=== PATIENT | male | born 1975 | race Caucasian/White ===

== ENCOUNTER 2020-09-22 09:25 | Emergency (ER) | payer OTHER, SELFPAY ==
[2020-09-22 09:25] VITALS: BP 148/103; PULSE 102; RESP 18; TEMP 36.9; O2SAT 92; BMI 30.3
[2020-09-22 09:27] VITALS: BP 148/103; PULSE 102; RESP 18; TEMP 36.9; O2SAT 92
[2020-09-22] MEDS: 0.9% Normal Saline 1,000 ML 150 ML IV (10:08)
[2020-09-22] MEDS: Ondansetron 4 MG/2 ML Vial IV (10:09)
[2020-09-22] MEDS: morphine 8 MG/ML Syringe IV (10:09)
--- NOTE | 2020-09-22 10:20 | ED.DCSUM_ITS ---
History of Present Illness Chief Complaint: Other, Pain/Inj Informant: Patient Onset: Days Maximum Severity: Mild Narrative: The patient complains of left calf pain for 2 days he has history of factor V Leiden deficiency, history of DVT right leg over 5 years currently on Coumadin, he has history of PE related to this process. About 3 years ago. He basically indicates he has been doing fine he missed some Coumadin doses in the last few days noticed pain to the left calf directly over the most fleshy area of the calf no trauma no knee pain no distal tib-fib ankle or foot pain, no right leg pain, no chest pain or shortness of breath, about weeks ago tested positive for coronavirus he recovered he has no symptoms related to that. He has missed his Coumadin for the last few days. He has not had his INR checked in a long time he is followed by his [facility] physicians in the [place] he has not seen in some time. He denies any other past history Past Medical History - Allergies and Home Meds Allergies/Adverse Reactions: Allergies No Known Allergies Allergy (Verified 09/22/20 09:28) Primary Care Physician: Care Physician,No Primary [Primary Care Provider] - Past Medical History: - - 5 Leiden deficiency right lower extremity DVT history of PE Smoking Status: Never smoker Review of Systems General: Denies: Chills, Fever, Sweats Eyes: Denies: Visual changes - bilaterally, Diplopia ENT: Denies: Rhinorrhea, Sore throat Cardiovascular: Denies: Chest pain, Palpitations Respiratory: Denies: Dyspnea, Cough, Dyspnea on exertion Gastrointestinal: Denies: Abdominal pain, Nausea, Vomiting, Diarrhea, Melena, Hematochezia Genitourinary: Denies: Dysuria, Hematuria, Frequency Musculoskeletal: Reports: Extremity Pain, - - Points directly to the most fleshy part of his left calf as having area of pain in this area is unremarkable on exam he has no pain behind the knee no pain in the tib-fib no pain in the thigh foot or ankle. Denies: Back pain Skin: Denies: Rash, Wounds Neurological: Denies: Headache, Weakness, Numbness Physical Exam Vital Signs/Narrative: Vital Signs Temp Pulse Resp BP Pulse Ox 09/22/20 09:27 98.4 F 102 H 18 148/103 H 92 09/22/20 09:25 98.5 F 102 H 18 148/103 H 92 General: Well nourished, Well developed, No Acute Distress Head: Normocephalic, Atraumatic Eyes: Perrl, EOMI ENT: Moist mucous membranes, No rhinorrhea Neck: Supple, Nontender Cardiovascular: Regular rate, Regular rhythm, No murmurs Respiratory: No distress, CTA bilaterally, Chest nontender Abdomen: Soft, Nontender, Nondistended, Normal bowel sounds Back: Nontender, Normal Inspection Extremities: No edema, Calf Tenderness Skin: Normal color, No rash Neurological: Alert, Oriented x3, Cranial nerves II-XII grossly intact, Normal Strength, Normal Sensation Psychological: Normal affect, Normal Mood Diagnostic/Tx/Re-eval - Medical Decision Making He has very mild left calf tenderness, there is no pain in the thigh he has intact pulses his distal lower extremity exams are unremarkable no neurovascular abnormality, head neck chest abdomen remarkable no history or signs to suggest PE cardiovascular element, when he sitting in the bed he feels fine if he tries to move the extremity has pain in the calf. The differential is rather extensive given all of the above and his history obtain screening labs check his INR pain management The patient basically states he feels fine he wants to be discharged for outpatient management physicians he was brought to the hospital related to pain management he has his Coumadin at his home he knows the importance of taking it and he can see his outpatient providers Patient's ED screening evaluation and labs are unremarkable INR basically subtherapeutic he is not taken the warfarin for some time but he has it at home, we discussed the management we discussed the differential the complications including life-threatening complications limb threatening complications, we discussed inpatient versus outpatient management does not wish to be admitted, He will be given Lovenox subcu here he will start Coumadin therapy he will follow-up with his outpatient providers to have his INR and other conditions assessed and managed and return for change in symptoms he does clearly understand the complicated nature of his health condition and the need to stay on the Coumadin, Krebs for rescue pain management, crutches Home stable Impression final left calf pain history of DVT factor V Leiden deficiency ED Disposition - Plan for ED Patient: Disposition: Home or Assisted Living Diagnosis: Left calf pain DVT factor V Leiden defic Instructions: DVT/PE Discharge instruction sheet, Taking?Coumadin, Treating Deep Vein Thrombosis Prescriptions: Hydrocodone Bitart/Apap 5-325 [Krebs 5MG-325MG] 1 tab PO Q4H PRN PRN 2 Days #10 tab PRN Reason: Pain Prescription Printed Referrals: Care Physician,No Primary [Primary Care Provider] - Additional Instructions: Crutches elevate ice follow-up with your outpatient providers in the next few days take Coumadin
[2020-09-22 10:30] LABS: Anion Gap 9 (5-15); BUN 19 mg/dL (7-18); BUN/Creat Ratio 16.8 RATIO (10-20); Calcium,Total 8.7 mg/dL (8.5-10.1); Chloride 98 mmol/L (98-107); Creatinine, Serum 1.13 mg/dL (0.70-1.30); EST Glomerular Filtration Rate 75 mL/min (>60); Est Glom Filt Rate - Afr Amer 91 mL/min (>60); Estimated Creatinine Clearance 95.26 ml/min; Glucose 111 mg/dL (74-106); Potassium 4.3 mmol/L (3.5-5.1); Sodium Level 133 mmol/L (136-145)
[2020-09-22 10:31] LABS: Absolute Lymphocyte Count 1.78 X10^3/uL (0.83-4.51); Absolute Neutrophil Count 9.8 X10^3/uL (2.0-7.7); Basophil# 0.03 X10^3/uL; Basophil% 0.2 % (0-1); Eosinophil# 0.05 X10^3/uL; Eosinophils% 0.4 % (0-5); Hematocrit 47.2 % (40-54); Hemoglobin 15.8 g/dL (13.0-16.5); Lymphocyte # 1.78 X10^3/ul (4.0); Mean Corp Hgb Conc 33.5 g/dL (32-36); Mean Corpuscular Hgb 29.5 pg (27.0-32.0); Mean Corpuscular Volume 88.1 fL (80-94); Mean Platelet Vol. 13.1 fl (6.2-12.0); Monocyte# 0.92 X10^3/uL; Monocyte% 7.3 % (0-10); NRBC Flagged by Analyzer 0 % (0-5); Neutrophil # 9.83 X10^3/uL (2.7-7.7); Neutrophil % 77.6 % (47-70); Platelet Count 154 K/mm3 (150-450); RBC Distribution Width CV 11.2 % (11.6-14.6); RBC Distribution Width SD 35.6 fl (35.1-43.9); Red Blood Count 5.36 M/mm3 (4.6-6.2); White Blood Count 12.7 K/mm3 (4.4-11.0)
[2020-09-22 10:39] LABS: International Normalized Ratio 1.2; Prothrombin Time (Protime)PT. 14.5 SECONDS (11.7-14.9)
[2020-09-22] MEDS: Enoxaparin 80 MG/0.8 ML Syringe 70 MG SC (11:07)
== END 2020-09-22 12:04 | disposition home or self-care (01) ==
PROVIDERS: Emergency Provider Emergency Medicine
DX: M79.662 Pain in left lower leg (principal); D68.51 Activated protein C resistance; Z86.718 Personal history of other venous thrombosis and embolism; Z86.711 Personal history of pulmonary embolism; Z79.01 Long term (current) use of anticoagulants
CPT/HCPCS: 80048; 85025; 85610; 96374; 96375; 99285; J7030; J2405

== ENCOUNTER 2020-09-25 11:13 | Emergency (ER) | payer OTHER, SELFPAY ==
[2020-09-25 11:16] VITALS: BP 157/93; PULSE 94; RESP 17; TEMP 35.6; O2SAT 96; BMI 31.0
--- NOTE | 2020-09-25 11:51 | ED.DCSUM_ITS ---
History of Present Illness Chief Complaint: Lower Extremity Injury Narrative: 45-year-old male with history of factor V Leiden as well as DVT in the right lower extremity presents with left leg pain and left calf and left popliteal area. Patient states that he was seen by primary care provider on outpatient basis and started on Coumadin empirically without a DVT study. He was given 1 shot of Lovenox 100 mg in the office. He states that currently he is not covered by this physician and cannot make a follow-up with him. His insurance does not kick in until October 13 and he is looking for a new primary care provider. He is currently on Coumadin 5 mg daily. He denies any chest pain, palpitations, shortness of breath. Patient feels that he needs Lovenox shots as he has had these in the past during his previous DVT. Patient states he failed Eliquis prior to this and knows that he can only be on Coumadin. He does not know if his INR is therapeutic. Past Medical History - Allergies and Home Meds Allergies/Adverse Reactions: Allergies No Known Allergies Allergy (Verified 09/25/20 11:16) Primary Care Physician: Care Physician,No Primary [Primary Care Provider] - Past Medical History: - - Factor V Leiden, DVT, pulmonary embolism Lives: Alone Smoking Status: Never smoker Alcohol: None Drugs: None Review of Systems General: Denies: Chills, Fever, Sweats Eyes: Denies: Visual changes - bilaterally, Diplopia ENT: Denies: Rhinorrhea, Sore throat Cardiovascular: Denies: Chest pain, Palpitations Respiratory: Denies: Dyspnea, Cough, Dyspnea on exertion Gastrointestinal: Denies: Abdominal pain, Nausea, Vomiting, Diarrhea, Melena, Hematochezia Genitourinary: Denies: Dysuria, Hematuria, Frequency Musculoskeletal: Reports: Extremity Pain - Left calf pain. Denies: Myalgias, Back pain Skin: Denies: Rash, Abscess Neurological: Denies: Headache, Weakness Psych: Denies: Depression, Anxiety Hematologic: Denies: Easy bruising, Easy bleeding Physical Exam Vital Signs/Narrative: Vital Signs Temp Pulse Resp BP Pulse Ox 09/25/20 11:16 96.0 F L 94 17 157/93 H 96 Inital Vital Signs reviewed: Yes General: Well nourished, No Acute Distress Eyes: Perrl, EOMI ENT: Moist mucous membranes, No rhinorrhea Cardiovascular: Regular rate, Regular rhythm Respiratory: No distress, CTA bilaterally Extremities: No edema, Calf Tenderness - Left calf tenderness. No cords palpated. Skin: Normal color, No rash Neurological: Alert, Oriented x3 Psychological: Normal affect, Normal Mood Diagnostic/Tx/Re-eval Laboratory Data 09/25/20 12:25 PT 20.2 H INR 1.8 - Medical Decision Making 5-year-old male with history of DVT and factor V Leiden presenting with left leg pain. He was diagnosed with DVT empirically and started on Coumadin after getting a Lovenox shot of 1 mg/kg. He states he still has pain. He has not had a DVT study performed. One was performed today which shows extensive clot from the left groin to the left ankle. Patient's INR is nearly therapeutic at 1.8. The social and political studies professor is setting up follow-up with [facility] that his INR can be followed. Today I will give him 1 mg/kg of Lovenox as well as double his dose of Coumadin for today. He will follow up with [facility] as well. They were unable to get him in this week however [facility] was able to. Patient given paperwork so that he could initiate an office visit. He will have his INR checked next week. He is given return precautions. Patient is stable for discharge at this time. Impression: 1. Left lower extremity DVT 2. History of factor V Leiden 3. Subtherapeutic INR ED Disposition - Plan for ED Patient: Disposition: Home or Assisted Living Instructions: ED Deep Vein Thrombosis (DVT) Referrals: Care Physician,No Primary [Primary Care Provider] - [facility] [Provider Group]
--- NOTE | 2020-09-25 11:51 | VDLE_ITS ---
Reason For Study: Pain Procedure LEFT Exam performed portable in ED. Lt CFV, Lt SFJ, Lt FV, Lt PopV, Lt T/P Trunk, A preliminary report was called and/or faxed Lt GastrocV, Lt PTV, Lt PeroV, and Lt SoleusV to Dr. Gomez. are dilated and non compressible consistent with acute DVT Lt GSV is partially compressible with bright intraluminal echoes consistent with chronic SVT. Interpretation Summary Extensive acute deep venous thrombosis left common femoral, saphenofemoral junction, femoral, popliteal, tibioperoneal trunk, gastrocnemius, posterior tibial, peroneal, and soleus veins. 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
[2020-09-25 12:59] LABS: International Normalized Ratio 1.8; Prothrombin Time (Protime)PT. 20.2 SECONDS (11.7-14.9)
--- NOTE | 2020-09-25 14:08 | CM.ED ---
Social Work Consult: No PCP Informant: Dr. Gomez Per Dr. Gomez patient needs to set up a PCP to have lab values followed. Telephone call to patient due to patient being in isolation. Patient agreeable to speak with this case management social worker. Patient confirms to not have a PCP or insurance currently. Patient reports to have insurance beginning 2020 ([facility]). Patient reports to be able to private pay to see a doctor and to have labs completed until patient insurance is active. Patient reports no preference for primary care physician. This case management social worker inquiring to [facility] and [facility] on openings this week as per Dr. Gomez patient needs labs checked again in a week. [facility] any [facility] this [facility]. [facility] has an opening and able to possibly accept patient pending patient completing the new patient form and [facility] signing off on form. This case management social worker updated patient on above information. Patient provided with form from [facility] and plans to complete this and turn into [facility] [facility]. Patient also provided within formation on [facility] as needed. Medical team updated on all information and nursing staff aware to provide patient with form and information on [facility] that this case management social worker put with patient chart. Pita Pastrana MSW, SELINA
[2020-09-25 14:09] VITALS: BP 134/82; PULSE 67; RESP 15; O2SAT 97
[2020-09-25] MEDS: Enoxaparin 100 MG/ML Syringe SC (14:15)
== END 2020-09-25 14:16 | disposition home or self-care (01) ==
PROVIDERS: Emergency Provider Student in an Organized Health Care Education/Training Program
DX: I82.402 Acute embolism and thrombosis of unspecified deep veins of left lower extremity (principal); D68.51 Activated protein C resistance; Z79.01 Long term (current) use of anticoagulants; Z86.718 Personal history of other venous thrombosis and embolism; Z86.711 Personal history of pulmonary embolism
CPT/HCPCS: 85610; 93971; 99283

== ENCOUNTER → 2020-10-03 16:48 | Outpatient (CLI) | payer SELFPAY ==
[2020-09-25 11:16] VITALS: BMI 31.0
[2020-10-03 17:59] LABS: Absolute Lymphocyte Count 1.69 X10^3/uL (0.83-4.51); Absolute Neutrophil Count 6.8 X10^3/uL (2.0-7.7); Basophil# 0.03 X10^3/uL; Basophil% 0.3 % (0-1); Eosinophil# 0.19 X10^3/uL; Eosinophils% 2.1 % (0-5); Hematocrit 46.6 % (40-54); Hemoglobin 14.8 g/dL (13.0-16.5); Lymphocyte # 1.69 X10^3/ul (4.0); Lymphocyte % 18.4 % (19-41); Mean Corp Hgb Conc 31.8 g/dL (32-36); Mean Corpuscular Hgb 29.5 pg (27.0-32.0); Mean Corpuscular Volume 92.8 fL (80-94); Mean Platelet Vol. 11.2 fl (6.2-12.0); Monocyte# 0.47 X10^3/uL; Monocyte% 5.1 % (0-10); NRBC Flagged by Analyzer 0 % (0-5); Neutrophil # 6.78 X10^3/uL (2.7-7.7); Neutrophil % 73.8 % (47-70); Platelet Count 532 K/mm3 (150-450); RBC Distribution Width CV 11.3 % (11.6-14.6); RBC Distribution Width SD 38.2 fl (35.1-43.9); Red Blood Count 5.02 M/mm3 (4.6-6.2); White Blood Count 9.2 K/mm3 (4.4-11.0)
[2020-10-03 18:52] LABS: ALB/GLOB Ratio 0.7 RATIO (0.9-2.4); AST(SGOT) 31 U/L (15-37); Alanine Aminotransfer ALT/SGPT 80 U/L (16-61); Albumin, Serum 3.4 g/dL (3.2-5.0); Alkaline Phosphatase 119 U/L (45-117); Anion Gap 8 (5-15); BUN 12 mg/dL (7-18); BUN/Creat Ratio 11.5 RATIO (10-20); Calcium,Total 9.1 mg/dL (8.5-10.1); Chloride 102 mmol/L (98-107); Creatinine, Serum 1.04 mg/dL (0.70-1.30); EST Glomerular Filtration Rate 83 mL/min (>60); Est Glom Filt Rate - Afr Amer 100 mL/min (>60); Globulin 4.9 g/dL (2.2-4.2); Glucose 93 mg/dL (74-106); Magnesium 2.4 mg/dL (1.6-2.6); Potassium 3.9 mmol/L (3.5-5.1); Protein, Total 8.3 g/dL (6.4-8.2); Sodium Level 138 mmol/L (136-145); Thyroid Stim Hormone (TSH) 0.97 uIU/mL (0.358-3.74)
== END ==
PROVIDERS: PCP Family Medicine; Referring Provider Family Medicine; Visit Provider Family Medicine
DX: I10 Essential (primary) hypertension (principal)
CPT/HCPCS: 36415; 80053; 83735; 84443; 85025

== ENCOUNTER → 2021-05-02 09:34 | Outpatient (CLI) | payer OTHER, SELFPAY ==
[2021-05-02 11:00] LABS: ALB/GLOB Ratio 0.9 RATIO (0.9-2.4); AST(SGOT) 33 U/L (15-37); Alanine Aminotransfer ALT/SGPT 52 U/L (16-61); Albumin, Serum 3.9 g/dL (3.2-5.0); Alkaline Phosphatase 73 U/L (45-117); Anion Gap 4 (5-15); BUN 15 mg/dL (7-18); BUN/Creat Ratio 14.3 RATIO (10-20); Calcium,Total 9.1 mg/dL (8.5-10.1); Chloride 103 mmol/L (98-107); Creatinine, Serum 1.05 mg/dL (0.70-1.30); EST Glomerular Filtration Rate 82 mL/min (>60); Est Glom Filt Rate - Afr Amer 99 mL/min (>60); Globulin 4.2 g/dL (2.2-4.2); Glucose 155 mg/dL (74-106); Potassium 3.7 mmol/L (3.5-5.1); Protein, Total 8.1 g/dL (6.4-8.2); Sodium Level 137 mmol/L (136-145)
[2021-05-03 10:39] LABS: Hemoglobin A1c 5.7 % (3.8-5.6)
== END ==
LOC: MFPLAB 09:35
PROVIDERS: PCP Family Medicine; Referring Provider Family Medicine; Visit Provider Family Medicine
DX: I10 Essential (primary) hypertension (principal); R73.09 Other abnormal glucose
CPT/HCPCS: 36415; 80053; 81001; 83036

== ENCOUNTER → 2021-06-15 15:52 | Outpatient (CLI) | payer OTHER, SELFPAY ==
[2021-06-15 17:36] LABS: Anion Gap 4 (5-15); BUN 11 mg/dL (7-18); BUN/Creat Ratio 10.6 RATIO (10-20); Calcium,Total 8.9 mg/dL (8.5-10.1); Chloride 104 mmol/L (98-107); Creatinine, Serum 1.04 mg/dL (0.70-1.30); EST Glomerular Filtration Rate 83 mL/min (>60); Est Glom Filt Rate - Afr Amer 100 mL/min (>60); Glucose 96 mg/dL (74-106); Potassium 3.6 mmol/L (3.5-5.1); Sodium Level 140 mmol/L (136-145)
== END ==
LOC: MFPLAB 15:55
PROVIDERS: PCP Family Medicine; Referring Provider Family Medicine; Visit Provider Family Medicine
DX: I10 Essential (primary) hypertension (principal)
CPT/HCPCS: 36415; 80048

== ENCOUNTER 2021-06-26 08:14 | Emergency (ER) | payer OTHER, SELFPAY ==
[2021-06-26 08:14] VITALS: BP 166/100; PULSE 86; RESP 16; TEMP 36.1; O2SAT 97; BMI 32.3
--- NOTE | 2021-06-26 08:37 | CT_ITS ---
STUDY: CT ABDOMEN AND PELVIS WITH CONTRAST REASON FOR EXAM: Male, 45 years old. Left abdominal pain RADIATION DOSAGE (If Supplied By Facility): CTDIvol = ( 15.95 ) mGy, DLP = ( 1202.57 ) mGycm TECHNIQUE: Transaxial images were obtained from the dome of the diaphragm to the symphysis pubis without oral contrast. IV 100mL Isovue-300 was administered. Sagittal and coronal images were reconstructed. Individualized dose optimization techniques were used for this CT. COMPARISON: None. FINDINGS: Focal patchy infiltrate in the anterior aspect of the right middle lobe. The visualized portions of the heart are within normal limits. There is decreased attenuation of the liver consistent with steatosis. Normal gallbladder and extrahepatic biliary system. Normal spleen. Normal pancreas. Normal bilateral adrenal glands. Mild degree of right hydronephrosis. Normal left kidney. Normal visualized stomach. Normal small intestine. No oral contrast is seen within the colon. There is suggestion of thickening of the wall of the right hemicolon. Colitis should be ruled out scattered sigmoid diverticula. The appendix is visualized and appears normal. Normal abdominal aorta. Normal inferior vena cava. Normal retroperitoneum. Partially contracted urinary bladder. Moderate degree of diffuse urinary bladder wall thickening with increased markings in the surrounding peritoneal fat. This is suggestive of cystitis. There is a small umbilical hernia containing fat. Normal osseous structures. CT/Abdomen/Pelvis W IV Cont ONLY IMPRESSION: Fatty infiltration of the liver. Findings suggestive cortex of the right hemicolon. Clinical correlation is suggested. Diffuse bladder wall thickening. Electronically Signed: Mateo Ricks MD at 9:59 EDT , Service support ,
--- NOTE | 2021-06-26 08:50 | ED.VIS.GI ---
HPI HPI - GI History of Present Illness Chief Complaint: Abd Pain Informant: patient Narrative Narrative: Patient is a 45-year-old male with history of factor V Leiden and multiple DVTs on chronic Coumadin therapy presenting with abdominal pain. Patient states he felt nauseous yesterday and this morning when he woke up he had pain in his left lower abdomen. He notes he has been feeling fatigued all week. Has been having chills and feeling hot but no fever. He has had nausea that is worsening today but denies any vomiting. He states has been having decreased frequency of bowel movements when he does have bowel movements they are loose. He has had increased urinary frequency but denies any hematuria or dysuria. No associated testicular pain. Does have a history of IBS so the bowel changes are not abnormal for him. Has never had abdominal pain like this before. Denies any radiation of the pain. I did take his morning medications this morning. No other complaints at this time. PFSH PFSH Medical History HTN (hypertension) Home Medications warfarin 5 mg PO DAILY 09/22/20 [History Last Taken Unknown] amoxicillin-pot clavulanate [Augmentin] 1 tab PO Q12H #20 tab 06/26/21 [Rx Last Taken Unknown] hydrochlorothiazide 25 mg PO DAILY 06/26/21 [History Last Taken Unknown] lisinopril 10 mg PO DAILY 06/26/21 [History Last Taken Unknown] ondansetron HCl [Zofran] 4 mg PO Q6H PRN #14 tab 06/26/21 [Rx Last Taken Unknown] Allergy/AdvReac Type Severity Reaction Status Date / Time No Known Allergies Allergy Verified 09/25/20 11:16 Social History Smoking Status: Current every day smoker tobacco type: cigarettes ROS ROS ED Constitutional Constitutional ED: Reports chills; Denies fever(s) or malaise Eyes Eyes: Denies blurry vision or loss of vision ENT ENT ED: Denies rhinorrhea or sore throat Cardiovascular Cardiovascular: Denies chest pain or dizziness Respiratory/Chest Respiratory/Chest: Denies cough or dyspnea Gastrointestinal Gastrointestinal: Reports abdominal pain, diarrhea and nausea; Denies constipation or vomiting Genitourinary Genitourinary ED: Reports urinary frequency; Denies dysuria or hematuria Musculoskeletal Musculoskeletal: Denies arthralgias, back pain or myalgias Integumentary Denies rash or wounds Neurologic Neurologic: Denies focal weakness or headache(s) Psychiatric Psychiatric: Denies anxiety or behavioral changes EXAM Physical Exam Const Vital Signs: 06/26/21 08:14 Temperature 97.0 F L Temperature Source Temporal Pulse Rate 86 Respiratory Rate 16 Blood Pressure 166/100 H Blood Pressure Mean 122 Pulse Ox 97 Oxygen Delivery Method Room Air Positive well nourished and well developed General Appearance ED: well developed HEENT Reports moist mucous membranes normocephalic and atraumatic Eyes PERRL and EOMs intact bilaterally Neck supple and no JVD Resp normal respiratory effort and clear to auscultation bilaterally Cardio regular rate, regular rhythm and no murmurs GI non-tender, non-distended and no masses Auscultation: normoactive bowel sounds Palpation: soft; Negative for guarding or rigid Back/Spine no CVA tenderness Extremity full ROM General Extremety ED: Negative for edema or tenderness General Extremity: Negative for edema Neuro moves all extremities Sensorium / Orientation: alert Motor Exam: Negative for general weakness Psych mental status grossly normal and thought process normal Skin Lesions: no lesions Rashes: no rashes MDM MDM MDM Narrative Medical decision making narrative: Patient is evaluated for left sided abdominal pain and nausea. Vital signs are significant for mild hypertension. Physical exam is pretty benign. Does not have a surgical abdomen. He has a normal white blood cell count and CMP is unremarkable. Coumadin is subtherapeutic with an INR of 1.6. Urinalysis does show some inflammatory versus infectious changes. Urine culture is ordered. CT the abdomen and pelvis is concerning for colitis of the right hemicolon as well as diffuse bladder wall thickening. Patient pain is more in his left side but does have illness of periumbilical abdominal pain. I will be put on Augmentin to cover for both urinary tract infection and colitis. Is discharged also with a prescription for Zofran and given first dose of Augmentin in the ER. Patient is counseled on signs and symptoms requiring return to the emergency room. Patient verbalizes agreement and understand this plan. Patient discharged home in stable and improved condition. Lab Data Labs: Laboratory Results - last 24 hr 06/26/21 06/26/21 06/26/21 08:57 08:57 09:06 WBC 9.2 RBC 4.92 Hgb 14.8 Hct 44.3 MCV 90.0 MCH 30.1 MCHC 33.4 RDW Std Deviation 37.6 RDW Coeff of Lizet 11.5 L Plt Count 320 MPV 11.8 Immature Gran % (Auto) 0.700 Neut % (Auto) 71.6 H Lymph % (Auto) 17.9 L Sierra % (Auto) 8.4 Eos % (Auto) 1.0 Baso % (Auto) 0.4 Absolute Neuts (auto) 6.6 Absolute Lymphs (auto) 1.65 Nucleated RBC % 0 PT 18.6 H INR 1.6 Sodium 134 L Potassium 3.9 Chloride 94 L Carbon Dioxide 34.0 H Anion Gap 6 BUN 12 Creatinine 1.10 Estim Creat Clear Calc 97.86 Est GFR (MDRD) Af Amer 94 Est GFR (MDRD) Non-Af 77 BUN/Creatinine Ratio 10.9 Glucose 124 H Calcium 9.0 Total Bilirubin 0.40 AST 20 ALT 46 Alkaline Phosphatase 77 Total Protein 8.3 H Albumin 3.3 Globulin 5.0 H Albumin/Globulin Ratio 0.7 L Urine Color Urine Clarity Urine pH Ur Specific [place] Urine Protein Urine Glucose (UA) Urine Ketones Urine Occult Blood Urine Nitrite Urine Bilirubin Urine Urobilinogen Ur Leukocyte Esterase Urine RBC Urine WBC Ur Squamous Epith Cells Urine Bacteria Urine Mucus 06/26/21 09:15 WBC RBC Hgb Hct MCV MCH MCHC RDW Std Deviation RDW Coeff of Lizet Plt Count MPV Immature Gran % (Auto) Neut % (Auto) Lymph % (Auto) Sierra % (Auto) Eos % (Auto) Baso % (Auto) Absolute Neuts (auto) Absolute Lymphs (auto) Nucleated RBC % PT INR Sodium Potassium Chloride Carbon Dioxide Anion Gap BUN Creatinine Estim Creat Clear Calc Est GFR (MDRD) Af Amer Est GFR (MDRD) Non-Af BUN/Creatinine Ratio Glucose Calcium Total Bilirubin AST ALT Alkaline Phosphatase Total Protein Albumin Globulin Albumin/Globulin Ratio Urine Color Yellow Urine Clarity Clear Urine pH 7.0 Ur Specific [place] 1.010 Urine Protein 100 H Urine Glucose (UA) Normal Urine Ketones Negative Urine Occult Blood 250 H Urine Nitrite Negative Urine Bilirubin Negative Urine Urobilinogen Normal Ur Leukocyte Esterase 25 H Urine RBC 5-10 SEEN Urine WBC 0-5 SEEN Ur Squamous Epith Cells 0-5 SEEN Urine Bacteria 3+ Urine Mucus 0 SEEN Radiography Diagnostic Testing: Radiology Impression Abdomen/Pelvis CT 06/26/21 08:37 IMPRESSION: Fatty infiltration of the liver. Findings suggestive cortex of the right hemicolon. Clinical correlation is suggested. Diffuse bladder wall thickening. Electronically Signed: Mateo Ricks MD at 9:59 EDT , Service support , Discharge Plan Triage Chief Complaint: Abd Pain ED Provider: Dominique Oliveira Dx/Rx/DC Orders Clinical Impression: Colitis, acute, Nausea, Subtherapeutic anticoagulation Instructions: ED Understanding Colitis Prescriptions: New amoxicillin-pot clavulanate [Augmentin] 875-125 mg tablet 1 tab PO Q12H Qty: 20 RF: 0 ondansetron HCl [Zofran] 4 mg tablet 4 mg PO Q6H PRN (Reason: nausea and vomiting) Qty: 14 RF: 0 No Action warfarin 5 MG tablet 5 mg PO DAILY RF: 0 lisinopril 5 mg tablet 10 mg PO DAILY RF: 0 hydrochlorothiazide 25 mg tablet 25 mg PO DAILY RF: 0 Primary Care Provider: Mekhi Quiñones Referrals: Mekhi Quiñones MD [Primary Care Provider] - Activity Restrictions/Additional Instructions: Your Coumadin level was low today?your INR was 1.6. Antibiotics can cause the INR to go up. Please follow-up with your doctor who manages your Coumadin level for further recommendations. Take Tylenol as needed for pain. Return the emergency room with any worsening symptoms. Disposition Disposition: Home, Self Care
[2021-06-26] MEDS: Ondansetron 4 MG/2 ML Vial IV (08:55)
[2021-06-26 09:02] LABS: Absolute Lymphocyte Count 1.65 X10^3/uL (0.83-4.51); Absolute Neutrophil Count 6.6 X10^3/uL (2.0-7.7); Basophil# 0.04 X10^3/uL; Basophil% 0.4 % (0-1); Eosinophil# 0.09 X10^3/uL; Hematocrit 44.3 % (40-54); Hemoglobin 14.8 g/dL (13.0-16.5); Lymphocyte # 1.65 X10^3/ul (0.83-4.51); Lymphocyte % 17.9 % (19-41); Mean Corp Hgb Conc 33.4 g/dL (32-36); Mean Corpuscular Hgb 30.1 pg (27.0-32.0); Mean Platelet Vol. 11.8 fl (6.2-12.0); Monocyte# 0.77 X10^3/uL; Monocyte% 8.4 % (0-10); NRBC Flagged by Analyzer 0 % (0-5); Neutrophil # 6.59 X10^3/uL (2.7-7.7); Neutrophil % 71.6 % (47-70); Platelet Count 320 K/mm3 (150-450); RBC Distribution Width CV 11.5 % (11.6-14.6); RBC Distribution Width SD 37.6 fl (35.1-43.9); Red Blood Count 4.92 M/mm3 (4.6-6.2); White Blood Count 9.2 K/mm3 (4.4-11.0)
[2021-06-26 09:19] LABS: International Normalized Ratio 1.6; Prothrombin Time (Protime)PT. 18.6 SECONDS (11.7-14.9)
[2021-06-26 09:20] LABS: ALB/GLOB Ratio 0.7 RATIO (0.9-2.4); AST(SGOT) 20 U/L (15-37); Alanine Aminotransfer ALT/SGPT 46 U/L (16-61); Albumin, Serum 3.3 g/dL (3.2-5.0); Alkaline Phosphatase 77 U/L (45-117); Anion Gap 6 (5-15); BUN 12 mg/dL (7-18); BUN/Creat Ratio 10.9 RATIO (10-20); Chloride 94 mmol/L (98-107); EST Glomerular Filtration Rate 77 mL/min (>60); Est Glom Filt Rate - Afr Amer 94 mL/min (>60); Estimated Creatinine Clearance 97.86 ml/min; Glucose 124 mg/dL (74-106); Potassium 3.9 mmol/L (3.5-5.1); Protein, Total 8.3 g/dL (6.4-8.2); Sodium Level 134 mmol/L (136-145)
[2021-06-26 09:21] LABS: Mucous, Urine 0 SEEN /hpf (<or=2+)
[2021-06-26 09:27] LABS: Color, Urine Yellow (Yellow); Glucose, Dipstick Normal (Normal); Ketone-Dipstick Negative (Negative); Leukocyte Esterase-Dipstick 25 /ul (Negative); Nitrite-Dipstick Negative (Negative); Occult Blood-Urine 250 /ul (Negative); Protein-Dipstick 100 mg/dl (Negative); Urine Bilirubin Dipstick Negative (Negative); Urine Clarity Clear (Clear); Urine Urobilinogen Normal (Normal)
[2021-06-26 09:32] LABS: Bacteria 3+ /hpf (None Seen); Red Blood Cells-Urine 5-10 SEEN /hpf (0-5); Squamous Epithelial Cells - UA 0-5 SEEN /hpf (0-5); White Blood Cells 0-5 SEEN /hpf (0-5)
[2021-06-26 11:17] VITALS: PULSE 88; RESP 17; O2SAT 98
== END 2021-06-26 11:17 | disposition home or self-care (01) ==
PROVIDERS: Emergency Provider Emergency Medicine; PCP Family Medicine
DX: K52.9 Noninfective gastroenteritis and colitis, unspecified (principal); R11.0 Nausea; F17.210 Nicotine dependence, cigarettes, uncomplicated; I10 Essential (primary) hypertension; Z79.01 Long term (current) use of anticoagulants; Z79.899 Other long term (current) drug therapy; Z86.718 Personal history of other venous thrombosis and embolism
CPT/HCPCS: 74177; 80053; 81001; 85025; 85610; 87077; 87086; 87088; 87186; 96374; 99283; J7030; Q9967; A4216; J2405

== ENCOUNTER 2021-10-04 16:13 | Outpatient (CLI) | payer OTHER, SELFPAY ==
[2021-10-04 18:14] LABS: Hemoglobin A1c 5.9 % (3.8-5.6)
[2021-10-04 18:33] LABS: ALB/GLOB Ratio 0.9 RATIO (0.9-2.4); AST(SGOT) 20 U/L (15-37); Alanine Aminotransfer ALT/SGPT 31 U/L (16-61); Albumin, Serum 3.9 g/dL (3.2-5.0); Alkaline Phosphatase 65 U/L (45-117); Anion Gap 8 (5-15); BUN 27 mg/dL (7-18); BUN/Creat Ratio 18.5 RATIO (10-20); Calcium,Total 9.8 mg/dL (8.5-10.1); Chloride 101 mmol/L (98-107); Creatinine, Serum 1.46 mg/dL (0.70-1.30); EST Glomerular Filtration Rate 56 mL/min (>60); Est Glom Filt Rate - Afr Amer 67 mL/min (>60); Globulin 4.3 g/dL (2.2-4.2); Glucose 81 mg/dL (74-106); Potassium 3.9 mmol/L (3.5-5.1); Protein, Total 8.2 g/dL (6.4-8.2); Sodium Level 137 mmol/L (136-145)
== END 2021-10-04 23:59 | disposition short-term general hospital (02) ==
LOC: MFPLAB 16:14
PROVIDERS: PCP Family Medicine; Referring Provider Family Medicine; Visit Provider Family Medicine
DX: I10 Essential (primary) hypertension (principal); R73.02 Impaired glucose tolerance (oral)
CPT/HCPCS: 36415; 80053; 83036

== ENCOUNTER → 2022-02-04 | Outpatient (CLI) | payer OTHER, SELFPAY ==
[2022-02-04 18:23] LABS: AST(SGOT) 21 U/L (15-37); Alanine Aminotransfer ALT/SGPT 45 U/L (16-61); Albumin, Serum 3.8 g/dL (3.2-5.0); Alkaline Phosphatase 66 U/L (45-117); Anion Gap 9 (5-15); BUN 22 mg/dL (7-18); BUN/Creat Ratio 15.5 RATIO (10-20); Calcium,Total 9.4 mg/dL (8.5-10.1); Chloride 101 mmol/L (98-107); Creatinine, Serum 1.42 mg/dL (0.70-1.30); EST Glomerular Filtration Rate 57 mL/min (>60); Est Glom Filt Rate - Afr Amer 70 mL/min (>60); Globulin 3.9 g/dL (2.2-4.2); Glucose 93 mg/dL (74-106); Protein, Total 7.7 g/dL (6.4-8.2); Sodium Level 136 mmol/L (136-145)
[2022-02-04 19:07] LABS: Hemoglobin A1c 6.1 % (3.8-5.6)
== END | disposition home or self-care (01) ==
LOC: MFPLAB 15:23
PROVIDERS: PCP Family Medicine; Visit Provider Family Medicine
DX: I10 Essential (primary) hypertension (principal); R73.02 Impaired glucose tolerance (oral)
CPT/HCPCS: 36415; 80053; 83036

== ENCOUNTER → 2022-06-04 | Outpatient (CLI) | payer OTHER, SELFPAY ==
[2022-06-04 18:07] LABS: Absolute Neutrophil Count 5.5 X10^3/uL (2.0-7.7); Basophil# 0.05 X10^3/uL; Basophil% 0.6 % (0-1); Eosinophil# 0.16 X10^3/uL; Eosinophils% 1.8 % (0-5); Hematocrit 40.8 % (40-54); Hemoglobin 13.6 g/dL (13.0-16.5); Lymphocyte % 27.6 % (19-41); Mean Corp Hgb Conc 33.3 g/dL (32-36); Mean Corpuscular Hgb 31.1 pg (27.0-32.0); Mean Corpuscular Volume 93.4 fL (80-94); Monocyte# 0.53 X10^3/uL; Monocyte% 6.1 % (0-10); NRBC Flagged by Analyzer 0 % (0-5); Neutrophil # 5.53 X10^3/uL (2.7-7.7); Neutrophil % 63.6 % (47-70); Platelet Count 267 K/mm3 (150-450); RBC Distribution Width CV 12.2 % (11.6-14.6); RBC Distribution Width SD 42.4 fl (35.1-43.9); Red Blood Count 4.37 M/mm3 (4.6-6.2); White Blood Count 8.7 K/mm3 (4.4-11.0)
[2022-06-04 18:25] LABS: Vitamin D,25 Hydroxy 19.4 ng/mL
[2022-06-04 18:49] LABS: ALB/GLOB Ratio 0.9 RATIO (0.9-2.4); AST(SGOT) 24 U/L (15-37); Alanine Aminotransfer ALT/SGPT 39 U/L (16-61); Albumin, Serum 3.7 g/dL (3.2-5.0); Alkaline Phosphatase 61 U/L (45-117); BUN 14 mg/dL (7-18); BUN/Creat Ratio 9.1 RATIO (10-20); Calcium,Total 9.4 mg/dL (8.5-10.1); Chloride 97 mmol/L (98-107); Cholesterol 237 mg/dL (200); Creatinine, Serum 1.54 mg/dL (0.70-1.30); EST Glomerular Filtration Rate 52 mL/min (>60); Est Glom Filt Rate - Afr Amer 63 mL/min (>60); Globulin 4.2 g/dL (2.2-4.2); Glucose 96 mg/dL (74-106); Phosphorus 3.5 mg/dL (2.5-4.9); Potassium 4.3 mmol/L (3.5-5.1); Protein, Total 7.9 g/dL (6.4-8.2); Sodium Level 135 mmol/L (136-145); Triglycerides 191 mg/dL
[2022-06-04 18:50] LABS: Anion Gap 10 (5-15); High Density Lipoprotein 50 mg/dL; Thyroid Stim Hormone (TSH) 1.48 uIU/mL (0.358-3.74); Very Low Density Lipoprotein 38 mg/dL (5-40)
== END | disposition home or self-care (01) ==
LOC: MFPLAB 16:30
PROVIDERS: PCP Family Medicine; Visit Provider Family Medicine
DX: I12.9 Hypertensive chronic kidney disease with stage 1 through stage 4 chronic kidney disease, or unspecified chronic kidney disease (principal); N18.30 Chronic kidney disease, stage 3 unspecified; Z86.718 Personal history of other venous thrombosis and embolism
CPT/HCPCS: 36415; 80053; 80061; 82306; 83970; 84100; 84443; 85025

== ENCOUNTER → 2022-10-01 | Outpatient (CLI) | payer OTHER, SELFPAY ==
[2022-10-01 16:14] LABS: Bacteria 0 SEEN /hpf (None Seen); Mucous, Urine 0 SEEN /hpf (<or=2+); Red Blood Cells-Urine 0 SEEN /hpf (0-5); White Blood Cells 0 SEEN /hpf (0-5)
[2022-10-01 18:12] LABS: Absolute Lymphocyte Count 2.63 X10^3/uL (0.83-4.51); Absolute Neutrophil Count 4.9 X10^3/uL (2.0-7.7); Basophil# 0.04 X10^3/uL; Basophil% 0.5 % (0-1); Eosinophil# 0.14 X10^3/uL; Eosinophils% 1.7 % (0-5); Hematocrit 41.8 % (40-54); Hemoglobin 13.7 g/dL (13.0-16.5); Lymphocyte # 2.63 X10^3/ul (0.83-4.51); Lymphocyte % 31.6 % (19-41); Mean Corp Hgb Conc 32.8 g/dL (32-36); Mean Corpuscular Hgb 30.2 pg (27.0-32.0); Mean Corpuscular Volume 92.3 fL (80-94); Mean Platelet Vol. 11.7 fl (6.2-12.0); Monocyte# 0.59 X10^3/uL; Monocyte% 7.1 % (0-10); NRBC Flagged by Analyzer 0 % (0-5); Neutrophil % 58.7 % (47-70); Platelet Count 289 K/mm3 (150-450); RBC Distribution Width SD 41.2 fl (35.1-43.9); Red Blood Count 4.53 M/mm3 (4.6-6.2); White Blood Count 8.3 K/mm3 (4.4-11.0)
[2022-10-01 18:19] LABS: Color, Urine Yellow (Yellow); Glucose, Dipstick Normal (Normal); Ketone-Dipstick Negative (Negative); Leukocyte Esterase-Dipstick Negative /ul (Negative); Nitrite-Dipstick Negative (Negative); Occult Blood-Urine Negative /ul (Negative); Protein-Dipstick Negative (Negative); Urine Bilirubin Dipstick Negative (Negative); Urine Clarity Clear (Clear); Urine Urobilinogen Normal (Normal)
[2022-10-01 18:38] LABS: Protein, Urine (Random) < 6.0 mg/dL (<11.9)
[2022-10-01 18:40] LABS: Hemoglobin A1c 6.1 % (3.8-5.6)
[2022-10-01 18:52] LABS: Squamous Epithelial Cells - UA 0-5 SEEN /hpf (0-5); Vitamin D,25 Hydroxy 51.8 ng/mL
[2022-10-01 19:02] LABS: ALB/GLOB Ratio 1.1 RATIO (0.9-2.4); AST(SGOT) 23 U/L (15-37); Alanine Aminotransfer ALT/SGPT 37 U/L (16-61); Albumin, Serum 3.9 g/dL (3.2-5.0); Alkaline Phosphatase 61 U/L (45-117); Anion Gap 10 (5-15); BUN 27 mg/dL (7-18); BUN/Creat Ratio 18.4 RATIO (10-20); Calcium,Total 8.8 mg/dL (8.5-10.1); Chloride 98 mmol/L (98-107); Cholesterol 234 mg/dL (200); Creatinine, Serum 1.47 mg/dL (0.70-1.30); EST Glomerular Filtration Rate 55 mL/min (>60); Est Glom Filt Rate - Afr Amer 67 mL/min (>60); Globulin 3.7 g/dL (2.2-4.2); Glucose 90 mg/dL (74-106); High Density Lipoprotein 48 mg/dL; Protein, Total 7.6 g/dL (6.4-8.2); Sodium Level 133 mmol/L (136-145); Triglycerides 241 mg/dL; Very Low Density Lipoprotein 48 mg/dL (5-40)
== END | disposition home or self-care (01) ==
LOC: MFPLAB 16:05
PROVIDERS: PCP Family Medicine; Referring Provider Family Medicine; Visit Provider Family Medicine
DX: I12.9 Hypertensive chronic kidney disease with stage 1 through stage 4 chronic kidney disease, or unspecified chronic kidney disease (principal); N18.30 Chronic kidney disease, stage 3 unspecified; R73.02 Impaired glucose tolerance (oral)
CPT/HCPCS: 36415; 80053; 80061; 81001; 82306; 82570; 83036; 84156; 85025

== ENCOUNTER → 2022-10-17 | Outpatient (CLI) | payer OTHER, SELFPAY ==
--- NOTE | 2022-10-17 08:40 | RDU_ITS ---
Reason For Study: HTN, CKD Right Renal Artery Left Renal Artery Right renal artery ostium Left renal artery ostium 84/24.9 116.8/33.2 RSV/EDV. PSV/EDV. Right renal artery proximal Left renal artery proximal PSV/EDV 94.3/31.5 PSV/EDV. 97.4/31.6 . Right renal artery mid 121.6/33.1 Left renal artery mid 85.3/34.3 PSV/EDV. PSV/EDV . Right renal artery distal 83/13.8 Left renal artery distal 120.7/36.1 PSV/EDV. PSV/EDV. Right Renal Parenchyma Left Renal Parenchyma Upper Pole Medula 37.1/10.6 Left upper pole medulla 43.8/14.1 PSV/EDV. PSV/EDV . Right upper pole medulla EDR 0.3 . Left upper pole medulla EDR 0.3 . Right upper pole medulla R.I. Left upper pole medulla R.I. 0.68 . 0.71 . UP Cortex 29.5/12 PSV/EDV. Upper [place] Cortx 27.9/8.8 PSV/EDV. Left upper pole cortex EDR 0.4 . Right upper pole cortex EDR 0.3 . Left upper pole cortex R.I. 0.59 . Right upper pole cortex R.I. 0.69 . Left lower Pole medulla 40.5/14.1 Right lower Pole medulla 37.1/9.7 PSV/EDV . PSV/EDV . Left lower pole medulla EDR 0.3 . Right lower pole medulla EDR 0.3 . Left lower pole medulla R.I. 0.65 . Right lower pole medulla R.I. Lower Pole Cortx 28.4/9.8 PSV/EDV. 0.74 . Left lower pole cortex EDR 0.3 . Lower Pole Cortex 25.2/7.9 PSV/EDV. Left lower pole cortex R.I. 0.66 . Right lower pole cortex EDR 0.3 . Left Renal Hilar Right lower pole cortex R.I. 0.69 . LT Hilar avg 52.8/18.3 PSV/EDV . Right Renal Hilar Left hilar acceleration time 40 Right Hilar avg 57.2/13.3 PSV/EDV. m/sec. Right hilar acceleration time 40 Left Renal Dimensions m/sec. Left kidney size 10.97 cm . Right Renal Dimensions Left cortical dimension 1.47 cm . Right kidney size 10.29 cm . Right cortical dimension 1.53 cm . Aorta Proximal abdominal aorta 1.79 x 1.79 cm . Proximal abdominal aorta peak systolic velocity is 103.4 cm/sec . Distal abdominal aorta 1.24 x 1.22 cm . Distal abdominal aorta peak systolic velocity is 101.5 cm/sec . VL/Renal Artery Duplex Ultrasound Interpretation Summary Less then 60% stenosis bilateral renal arteries Maximal aortic diameter proximally at 1.79 by point 0.79 cm. Right renal length maintained at 10.29 cm Left renal length maintained at 10.97 cm Normal bilateral renal resistive indices correlating with parenchymal function Ordering Physician: Mekhi Quiñones Referring Physician: Mekhi Quiñones Performed By: Davina Owen RVT
--- NOTE | 2022-10-17 10:00 | US_ITS ---
STUDY: RENAL ULTRASOUND - COMPLETE REASON FOR EXAM: Male, 47 years old. Htn and CKD III TECHNIQUE: Ultrasound evaluation of the kidneys was performed with real-time and static boswell-scale imaging. COMPARISON: None. FINDINGS: RIGHT KIDNEY: Normal location of the right kidney, which is normal in size. The right kidney measures 11.2 cm x 5.8 cm x 4.9 cm. There is a normal cortex of the right kidney. The renal cortex measures 1.2 cm. There is no right renal mass or cyst. There are no right renal calculi. There is no right hydronephrosis. DISTAL RIGHT URETER: There is non-visualization of the distal right ureter. There is no demonstrated right ureterovesical junction calculus. There is a visualized right ureteral jet. LEFT KIDNEY: Normal location of the left kidney, which is normal in size. The left kidney measures 11.2 cm x 6 x 5.8 cm. There is a normal cortex of the left kidney. The renal cortex measures 1 cm. There is no left renal mass or cyst. There are no left renal calculi. There is no left hydronephrosis. DISTAL LEFT URETER: There is non-visualization of the distal left ureter. There is no demonstrated left ureterovesical junction calculus. There is a visualized left ureteral jet. BLADDER: The distended urinary bladder has a volume of 289 ml. There is a normal wall thickness of the distended urinary bladder. There is no demonstrated mass within the urinary bladder. There are no demonstrated bladder calculi. US/Kidney and Bladder IMPRESSION: Normal ultrasound of the kidneys and urinary bladder. Electronically Signed: Mateo Ricks MD at 11:11 EST ,
== END | disposition home or self-care (01) ==
LOC: US 08:38
PROVIDERS: PCP Family Medicine; Referring Provider Family Medicine; Visit Provider Family Medicine
DX: I12.9 Hypertensive chronic kidney disease with stage 1 through stage 4 chronic kidney disease, or unspecified chronic kidney disease (principal); N18.30 Chronic kidney disease, stage 3 unspecified
CPT/HCPCS: 76770; 93975

== ENCOUNTER → 2023-01-29 | Outpatient (CLI) | payer OTHER, SELFPAY ==
[2023-01-29 11:30] LABS: Bacteria 0 SEEN /hpf (None Seen); Mucous, Urine 0 SEEN /hpf (<or=2+); Squamous Epithelial Cells - UA 0 SEEN /hpf (0-5); White Blood Cells 0 SEEN /hpf (0-5)
[2023-01-29 12:07] LABS: Absolute Lymphocyte Count 1.81 X10^3/uL (0.83-4.51); Basophil# 0.03 X10^3/uL; Basophil% 0.4 % (0-1); Eosinophil# 0.08 X10^3/uL; Eosinophils% 1.1 % (0-5); Hematocrit 50.1 % (40-54); Hemoglobin 16.2 g/dL (13.0-16.5); Lymphocyte # 1.81 X10^3/ul (0.83-4.51); Lymphocyte % 24.2 % (19-41); Mean Corp Hgb Conc 32.3 g/dL (32-36); Mean Corpuscular Hgb 30.3 pg (27.0-32.0); Mean Corpuscular Volume 93.6 fL (80-94); Monocyte# 0.52 X10^3/uL; NRBC Flagged by Analyzer 0 % (0-5); Neutrophil # 5.01 X10^3/uL (2.7-7.7); Platelet Count 296 K/mm3 (150-450); RBC Distribution Width CV 12.3 % (11.6-14.6); RBC Distribution Width SD 42.4 fl (35.1-43.9); Red Blood Count 5.35 M/mm3 (4.6-6.2); White Blood Count 7.5 K/mm3 (4.4-11.0)
[2023-01-29 12:25] LABS: Color, Urine Yellow (Yellow); Glucose, Dipstick 1000 mg/dl (Normal); Ketone-Dipstick 5 mg/dl (Negative); Leukocyte Esterase-Dipstick Negative /ul (Negative); Nitrite-Dipstick Negative (Negative); Occult Blood-Urine 10 /ul (Negative); Protein-Dipstick Negative (Negative); Specific Gravity, Urine 1.015 (1.002-1.030); Urine Bilirubin Dipstick Negative (Negative); Urine Clarity Sl. Cloudy (Clear); Urine Urobilinogen Normal (Normal)
[2023-01-29 12:27] LABS: PTHIN 60.5 pg/mL (18.4-80.1)
[2023-01-29 12:28] LABS: Protein:Creat Ratio 61 mg/g CRE (0-200)
[2023-01-29 12:31] LABS: Vitamin D,25 Hydroxy 69.7 ng/mL
[2023-01-29 12:32] LABS: Hemoglobin A1c 5.9 % (3.8-5.6)
[2023-01-29 12:35] LABS: AST(SGOT) 29 U/L (15-37); Alanine Aminotransfer ALT/SGPT 43 U/L (16-61); Albumin, Serum 4.2 g/dL (3.2-5.0); Alkaline Phosphatase 75 U/L (45-117); Anion Gap 8 (5-15); BUN 18 mg/dL (7-18); BUN/Creat Ratio 13.6 RATIO (10-20); Calcium,Total 9.9 mg/dL (8.5-10.1); Chloride 101 mmol/L (98-107); Cholesterol 252 mg/dL (200); Creatinine, Serum 1.32 mg/dL (0.70-1.30); EST Glomerular Filtration Rate 62 mL/min (>60); Est Glom Filt Rate - Afr Amer 75 mL/min (>60); Globulin 4.3 g/dL (2.2-4.2); Glucose 110 mg/dL (74-106); High Density Lipoprotein 54 mg/dL; Phosphorus 3.7 mg/dL (2.5-4.9); Potassium 4.3 mmol/L (3.5-5.1); Protein, Total 8.5 g/dL (6.4-8.2); Sodium Level 137 mmol/L (136-145); Triglycerides 143 mg/dL; Very Low Density Lipoprotein 29 mg/dL (5-40)
[2023-01-29 12:38] LABS: Red Blood Cells-Urine 0-5 SEEN /hpf (0-5)
== END | disposition home or self-care (01) ==
LOC: LAB 11:26
PROVIDERS: PCP Family Medicine; Referring Provider Family Medicine; Visit Provider Family Medicine
DX: I12.9 Hypertensive chronic kidney disease with stage 1 through stage 4 chronic kidney disease, or unspecified chronic kidney disease (principal); N18.30 Chronic kidney disease, stage 3 unspecified; R73.02 Impaired glucose tolerance (oral); E55.9 Vitamin D deficiency, unspecified
CPT/HCPCS: 36415; 80053; 80061; 81001; 82306; 82570; 83036; 83970; 84100; 84156; 85025

== ENCOUNTER → 2023-04-09 | Outpatient (CLI) | payer OTHER, SELFPAY ==
[2023-04-09 16:04] LABS: Hematocrit 43.2 % (40-54); Hemoglobin 14.3 g/dL (13.0-16.5); Mean Corp Hgb Conc 33.1 g/dL (32-36); Mean Corpuscular Hgb 30.9 pg (27.0-32.0); Mean Corpuscular Volume 93.3 fL (80-94); Mean Platelet Vol. 11.8 fl (6.2-12.0); Platelet Count 279 K/mm3 (150-450); RBC Distribution Width CV 12.7 % (11.6-14.6); RBC Distribution Width SD 43.3 fl (35.1-43.9); Red Blood Count 4.63 M/mm3 (4.6-6.2); White Blood Count 9.2 K/mm3 (4.4-11.0)
[2023-04-09 16:32] LABS: Albumin, Serum 3.6 g/dL (3.2-5.0); BUN 16 mg/dL (7-18); BUN/Creat Ratio 10.5 RATIO (10-20); Chloride 98 mmol/L (98-107); Creatinine, Serum 1.52 mg/dL (0.70-1.30); EST Glomerular Filtration Rate 53 mL/min (>60); Est Glom Filt Rate - Afr Amer 64 mL/min (>60); Glucose 90 mg/dL (74-106); Phosphorus 3.8 mg/dL (2.5-4.9); Potassium 4.1 mmol/L (3.5-5.1); Sodium Level 132 mmol/L (136-145)
== END | disposition home or self-care (01) ==
LOC: POLAB3 14:00
PROVIDERS: PCP Family Medicine; Visit Provider Internal Medicine Nephrology
DX: N18.31 Chronic kidney disease, stage 3a (principal)
CPT/HCPCS: 36415; 80069; 85027